=== PATIENT | male | born 1960 | race Caucasian/White ===

== ENCOUNTER → 2019-06-03 09:52 | Outpatient (CLI) | payer MEDICARE, SELFPAY ==
[2019-06-03 10:39] LABS: Basophils % 0.7 % (0.1-2.0); Eosinophils # 0.1 K/mm3 (0.0-0.4); Eosinophils % 1.2 % (0.1-12.0); Hematocrit 45.2 % (42.0-52.0); Hemoglobin 14.7 g/dL (14.1-18.0); Lymphocytes % 42.3 % (10-50); Mean Corpuscular HGB Conc 32.5 g/dL (31.8-35.4); Mean Corpuscular Hemoglobin 31.1 pg (27.0-31.2); Mean Corpuscular Volume 95.5 fl (80-94); Mean Platelet Volume 8.1 fl (7.4-10.4); Monocytes # 0.4 K/mm3 (0.1-1.0); Monocytes % 7.9 % (1.7-9.3); Neutrophils # 2.3 K/mm3 (1.8-7.8); Platelet Count 271 K/mm3 (142-424); Red Blood Count 4.73 M/mm3 (4.60-6.20); Red Cell Distribution Width 12.6 % (11.5-17.5); White Blood Count 4.8 K/mm3 (4.8-10.8)
[2019-06-03 12:15] LABS: Anion Gap 13.6 mEq/L (5-15); Blood Urea Nitrogen 10 mg/dL (7-18); Calcium 8.4 mg/dL (8.5-10.1); Carbon Dioxide 29 mmol/L (21.0-32.0); Chloride 107 mmol/L (98-107); Creatinine,Serum 1.04 mg/dL (0.70-1.30); Estimated Glomerular Filt Rate 73 ml/min (>60); GFR (African American) 89 ML/MIN (>60); Glucose 64 mg/dL (74-106); Potassium 4.6 mmoL/L (3.5-5.1); Sodium 145 mmol/L (136-145)
== END ==
PROVIDERS: Visit Provider Surgery
DX: K40.90 Unilateral inguinal hernia, without obstruction or gangrene, not specified as recurrent (principal); K81.1 Chronic cholecystitis
CPT/HCPCS: 36415; 80048; 85025

== ENCOUNTER 2020-01-10 19:25 | Emergency (ER) | payer BC, SELFPAY ==
[2020-01-10 20:07] VITALS: BP 132/72; PULSE 81; RESP 20; TEMP 36.8; O2SAT 98; BMI 22.7
--- NOTE | 2020-01-10 20:12 | HMH.EDUTC ---
[facility] [place] Clinical Impression: Cellulitis of right arm Disposition: Home, Self-Care Condition on Discharge: Good Instructions: Cellulitis Additional Instructions: Keep the affected area clean and dry. Follow up with your regular doctor. Take the antibiotics as directed and apply the topical antibiotics as directed. Apply warm wet compresses to the affected area three or four times per day. GO TO THE ER FOR ANY WORSENING SYMPTOMS Prescriptions: Sulfamethoxazole/Trimethoprim [Bactrim DS tablet] 1 each PO BID 10 Days #20 tab Transmission Status: Received by [facility] [facility] # Mupirocin [Bactroban 2% Ointment 22gm tube] 1 applicatio TP TID 7 Days #1 tube Transmission Status: Received by [facility] [employer] [facility] # cephALEXin [Keflex 500mg Cap] 500 mg PO Q6H 10 Days #40 cap Transmission Status: Received by [employer] # Referrals: Leonard Flores MD [Primary Care Provider] - Forms: Work/School Release Time of Disposition: 20:21 Medical Decision Making - Medical Records Medical records reviewed: No: I reviewed the patient's medical records. - Geo Inquiry Pt receiving controlled substance: No Vital Signs: 01/10/20 20:07 01/10/20 20:22 Temperature 98.2 F 98.2 F Temperature Source Oral Pulse Rate 81 Pulse Rate [Right Brachial] 81 Respiratory Rate 20 20 Blood Pressure 132/72 Blood Pressure [Right Arm] 132/72 Blood Pressure Mean [Right Arm] 92 Blood Pressure Source [Right Arm] Automatic Cuff Blood Pressure Position [Right Arm] Sitting 02 Sat by Pulse Oximetry 98 Oxygen Delivery Method Room Air [facility] [place] - General Stated complaint: Spider bite R Wrist Time Seen by Provider: 01/10/20 20:12 Mode of Arrival: Ambulatory Source of Information: Patient Limitations: No Limitations Description of Symptoms (Recalled from Triage Doc. by RN): PATIENT C/O POSSIBLE SPIDER BITE X 3 DAYS HEENT Symptoms (Recalled from RN notes): No Resp Symptoms (Recalled from RN notes): No Skin Symptoms (Recalled from RN notes): Yes MS Symptoms (Recalled from RN notes): No Functional Status (Recalled from RN notes): WNL - History of Present Illness Provider Complaint: He c/o having an infected area on his right fore arm. It has been present for the past 3 days. He denies any fever or chills or additional lesions. - Related Data Previous Rx's Medication Instructions Recorded Mupirocin [Bactroban 2% Ointment 1 applicatio TP TID 7 Days #1 tube 01/10/20 22gm tube] Sulfamethoxazole/Trimethoprim 1 each PO BID 10 Days #20 tab 01/10/20 [Bactrim DS tablet] cephALEXin [Keflex 500mg Cap] 500 mg PO Q6H 10 Days #40 cap 01/10/20 Allergies Allergy/AdvReac Type Severity Reaction Status Date / Time acetaminophen AdvReac Headache Verified 07/01/19 10:05 [From Lorcet (hydrocodone)] hydrocodone AdvReac Headache Verified 07/01/19 10:05 [From Lorcet (hydrocodone)] - Worker's Comp Is this a Worker's Comp case?: No [facility] History - Hepatitis A Screen Drug use history?: No High risk sexual behaviors?: No History of sexually transmitted infection?: No Currently employed?: No Childcare worker?: No Do you have indoor plumbing?: Yes Do you have electricity?: Yes Attestation statement:: This patient has been screened for Hepatitis A risk factors. I have reviewed the patient's past medical history: Yes Medical History: Denies:: Cancer, Diabetes Mellitus Type 1, Diabetes Mellitus Type 2, Internal Pacemaker, MRSA, Seizures Other Medical History: Denies: Blood Transfusion Reaction Other Surgeries: Yes: Hernia Repair. No: Pacemaker Amputation: No Fractures: No - Social History Smoking Status: Never smoker Alcohol Intake: never Substance Use Type: denies use Occupational Status: other Housing: house Household Members: significant other Family Hx:: No significant family history ROS Obtained: Yes All systems reviewed & no additional complaint
[2020-01-10 20:22] VITALS: BP 132/72; PULSE 81; RESP 20; TEMP 36.8; O2SAT 98
== END 2020-01-10 20:25 | disposition home or self-care (01) ==
PROVIDERS: Emergency Provider Nurse Practitioner Family; PCP Family Medicine
DX: L03.113 Cellulitis of right upper limb (principal)
CPT/HCPCS: 99201

== ENCOUNTER 2022-08-13 10:24 | Emergency (ER) | payer BC, SELFPAY ==
[2022-08-13 10:31] VITALS: BP 141/87; PULSE 74; RESP 18; TEMP 36.4; O2SAT 98; BMI 23.3
[2022-08-13 10:45] VITALS: BP 141/87; PULSE 74; RESP 18; TEMP 36.4; O2SAT 98; BMI 23.3
--- NOTE | 2022-08-13 11:00 | EXP.UTC ---
Discharge Plan Disposition Patient Disposition: Home, Self-Care Condition: Good Prescriptions Prescriptions: New doxycycline hyclate 100 mg capsule 100 mg PO BID 14 Days Qty: 28 0RF No Action sulfamethoxazole-trimethoprim 1 EACH tablet 1 each PO BID 10 Days Qty: 20 0RF cephalexin 500 MG capsule 500 mg PO Q6H 10 Days Qty: 40 0RF mupirocin 22 GM ointment 1 applicatio TP TID 7 Days Qty: 1 0RF Referrals Follow up/Referrals: Leonard Flores MD [Primary Care Provider] - See instructions Activity Restrictions/Add. Instructions Additional Instructions/Restrictions: keep area clean monitor for s/s of infection follow up with pcp for test results meds as ordered Clinical Impressions Clinical Impression: Tick bite Instructions Patient Instructions: How to Remove a Tick, Protect Yourself from Tickborne Illnesses Discharge ED Provider: Hunter ([facility])Letha [facility] [place] General Stated complaint: Possible tick embedded in chest Mode of Arrival: Ambulatory Source of Information: Patient Limitations: No Limitations Time Seen by Provider: 08/13/22 11:02 Description of Symptoms (Recalled from Triage Doc. by RN): c/o pieces of a tick in his left upper chest. PT states that he had a tick stuck in his skin and they poured bleach on it and then try to remove it and the tick broke. History of Present Illness Provider Complaint: 62 yr old male presents for a tick bite. pt states he noticed a tick in upper left chest last pm. states she poured bleach on tick and tried to remove it and it broke off. states part of the tick is still in skin. Related Data Previous Rx's Medication Instructions Recorded cephalexin 500 mg capsule 500 mg PO Q6H 10 days #40 caps 01/10/20 mupirocin 2 % topical ointment 1 applicatio TP TID 7 days #1 tube 01/10/20 sulfamethoxazole 800 1 each PO BID 10 days #20 tabs 01/10/20 mg-trimethoprim 160 mg tablet doxycycline hyclate 100 mg capsule 100 mg PO BID 14 days #28 caps 08/13/22 Allergies Allergy/AdvReac Type Severity Reaction Status Date / Time acetaminophen AdvReac Headache Verified 07/01/19 10:05 [From Fredrickt (hydrocodone)] hydrocodone AdvReac Headache Verified 07/01/19 10:05 [From Lorcet (hydrocodone)] [facility] Disclaimer: The information contained in this section may have been updated after the patient was seen, as this information can be updated by other users. Surgical History , [employer]) History of hernia repair Social History , TEACHING FELLOW) Smoking Status: Never smoker alcohol intake: never substance use type: denies use current occupational status: other Travel in the last 8 weeks: None household members: significant other housing: house current occupational exposures/hazards: No caffeine: Yes ROS Obtained: Yes All systems reviewed & no additional complaints except as documented Constitutional Constitutional: Reports system reviewed and no additional complaints, except as documented and Reports as per HPI Eyes Eyes: Reports system reviewed and no additional complaints, except as documented ENT Ears, Nose, Mouth, and Throat: Reports system reviewed and no additional complaints, except as documented Cardiovascular Cardiovascular: Reports system reviewed and no additional complaints, except as documented Respiratory Respiratory: Reports system reviewed and no additional complaints, except as documented Gastrointestinal Gastrointestingal: Reports system reviewed and no additional complaints, except as documented Integumentary/Breasts Skin/Breast: Reports system reviewed and no additional complaints, except as documented and Reports as per HPI Endocrine Endocrine: Reports system reviewed and no additional complaints, except as documented Hematologic/Lymphatic Henatologic/Lymphatic: Reports system reviewed and no additional complaints,
[2022-08-13 11:13] VITALS: BP 141/87; PULSE 74; RESP 18; TEMP 36.4; O2SAT 98
[2022-08-17 11:22] LABS: Lyme B. burgdorferi PCR Blood Negative (Negative)
== END 2022-08-13 11:19 | disposition home or self-care (01) ==
PROVIDERS: Emergency Provider Nurse Practitioner Family; PCP Family Medicine
DX: S20.352A Superficial foreign body of left front wall of thorax, initial encounter (principal); W57.XXXA Bitten or stung by nonvenomous insect and other nonvenomous arthropods, initial encounter
CPT/HCPCS: 87476; 99212; 99213; G0463